=== PATIENT | female | born 1955 | race Caucasian/White ===

== ENCOUNTER 2017-03-04 16:03 | Outpatient (CLI) | payer SELFPAY ==
--- NOTE | 2017-03-04 18:45 | RAD ---
CHEST TWO VIEWS: 03/04/17 Comparison is made with a 11/30/12 study. The heart is normal in size. There are no infiltrates or ef fusions to suggest pneumonia. The right hilum is marginally more prominent than it was before, but th e patient is turned to the side slightly differently which is most likely responsible. If symptoms co ntinue, then followup could be in order. IMPRESSION: No acute thoracic findings. See above. POS: HOME
== END 2017-03-04 16:04 | disposition home or self-care (01) ==
LOC: BURRAD 16:03
PROVIDERS: ATTEND Physician Assistant
DX: R06.2 Wheezing (principal); J40 Bronchitis, not specified as acute or chronic; J10.1 Influenza due to other identified influenza virus with other respiratory manifestations
CPT/HCPCS: 71020

== ENCOUNTER 2021-10-31 23:34 | Emergency (ER) | payer MEDICARE ==
[2021-11-01] MEDS ORDERED: Meclizine HCl 25 MG TAB ONE (00:08)
[2021-11-01 00:23] LABS: INR-International Normal Ratio 0.9; Prothrombin Time 12.3 sec (12.0-14.7)
[2021-11-01 00:24] LABS: PTT 29.7 sec (22.9-36.1)
[2021-11-01 00:29] LABS: #Basophils 0.1 thou/uL (0.0-0.2); #Eosinphils 0.5 thou/uL (0.0-0.7); #Lymphocytes 2.2 thou/uL (1.20-3.40); #Monocytes 0.8 thou/uL (0.11-0.59); %Basophils 0.9 % (0.0-1.0); %Eosinophils 4.9 % (0.0-10.0); %Lymphocytes 20.5 % (21.0-51.0); %Monocytes 7.8 % (0.0-10.0); Hemoglobin 14.1 g/dL (12.0-16.0); Mean Corpuscular HGB CONC 33.9 g/dL (32.0-36.0); Mean Corpuscular Hemoglobin 31.4 pg (27.0-31.0); Mean Corpuscular Volume 92.6 fL (78.0-98.0); Mean Platelet Volume 6.2 fL (7.4-10.4); Platelet Count 316 thou/uL (130-400); RBC Distribution Width 12.9 % (11.5-14.5); White Blood Cell (WBC) Count 10.5 thou/uL (4.8-10.8)
[2021-11-01 00:43] LABS: ALT (SGPT) 27 U/L (8-55); AST (SGOT) 27 U/L (5-34); Albumin 4.2 g/dL (3.4-4.8); Alkaline Phosphatase 183 U/L (40-110); Anion Gap 15 mmol/L (10-20); BUN (Urea Nitrogen) 11 mg/dL (9.8-20.1); Bilirubin, Total 0.5 mg/dL (0.2-1.2); Calc. Creatinine Clearance 0 mL/min (70-130); Calcium 9.8 mg/dL (7.8-10.44); Carbon Dioxide 27 mmol/L (23-31); Chloride 105 mmol/L (98-107); Estimated GFR 94; Globulin 3.9 g/dL (2.4-3.5); Glucose 113 mg/dL (80-115); Potassium 3.7 mmol/L (3.5-5.1); Protein, Total 8.1 g/dL (5.8-8.1); Sodium 143 mmol/L (136-145)
[2021-11-01 01:10] LABS: Bilirubin Negative (Negative); Blood, Urine Negative (Negative); Clarity Clear (Clear); Glucose, Urine (Dipstick) Negative (Negative); Ketone, Urine Negative (Negative); Leukocyte Large (Negative); Nitrite Negative (Negative); Protein, Urine (Dipstick) Trace mg/dL (Neg-Trace); pH, Urine 7.5 (5.0-9.0)
[2021-11-01 01:11] LABS: Bacteria/HPF 2+ HPF (None Seen); RBC/HPF 0-3 HPF (0-3); Squamous Epithelial 0-3 HPF (0-3); WBC/HPF Greater Than 50 HPF (0-3)
== END 2021-11-01 01:33 | disposition home or self-care (01) ==
LOC: BURERS 23:34
DX: R42 Dizziness and giddiness (principal); N39.0 Urinary tract infection, site not specified; I10 Essential (primary) hypertension; E03.9 Hypothyroidism, unspecified
CPT/HCPCS: 70450; 71045; 80053; 81003; 81015; 84484; 85025; 85610; 85730; 93005

== ENCOUNTER 2022-02-28 01:02 | Inpatient (IN) | payer MEDICARE ==
[2022-02-28] MEDS ORDERED: Magnesium 2 GM/50 ML BAG (IN WATER) ONE (01:20)
[2022-02-28] MEDS ORDERED: methylPREDNISolone Sod Succ/PF 125 MG/2 ML VIAL ONE (01:20)
[2022-02-28] MEDS ORDERED: Albuterol Sulfate 2.5 mg/3 ml Neb ONE ×2 (01:20→01:40)
[2022-02-28 01:29] LABS: #Basophils 0.1 thou/uL (0.0-0.2); #Eosinphils 0.5 thou/uL (0.0-0.7); #Lymphocytes 2.3 thou/uL (1.20-3.40); #Monocytes 0.8 thou/uL (0.11-0.59); #Neutrophils 3.4 thou/uL (1.40-6.50); %Basophils 0.9 % (0.0-1.0); %Lymphocytes 32.1 % (21.0-51.0); %Monocytes 11.2 % (0.0-10.0); %Neutrophils 48.8 % (42.0-75.0); Hemoglobin 13.9 g/dL (12.0-16.0); Mean Corpuscular HGB CONC 34.1 g/dL (32.0-36.0); Mean Corpuscular Hemoglobin 30.7 pg (27.0-31.0); Mean Corpuscular Volume 90.1 fl (78.0-98.0); Mean Platelet Volume 6.9 fL (7.4-10.4); Platelet Count 243 10x3/uL (130-400); RBC Distribution Width 12.1 % (11.5-14.5); Red Blood Cell (RBC) Count 4.53 mill/uL (4.20-5.40)
[2022-02-28 01:41] LABS: Bicarbonate (HCO3v) 24.7 mmol/L (22.0-28.0); Calcium, Ionized 1.17 mmol/L (1.15-1.33); Chloride 108 mmol/L (98-107); Hemoglobin - Calc 14.3 g/dL (12.0-16.0); Potassium 3.8 mmol/L (3.5-5.1); Sodium 142 mmol/L (138-145); T. Carbon Dioxide 26.1 mmol/L (22.0-28.0); vO2 Saturation-calc 70.2 % (60.0-85.0)
[2022-02-28 01:51] LABS: ALT (SGPT) 85 U/L (8-55); AST (SGOT) 66 U/L (5-34); Albumin 3.8 g/dL (3.4-4.8); Alkaline Phosphatase 108 U/L (40-110); Anion Gap 12 mmol/L (10-20); BUN (Urea Nitrogen) 14 mg/dL (9.8-20.1); Bilirubin, Total 0.5 mg/dL (0.2-1.2); Calc. Creatinine Clearance 0 mL/min (70-130); Calcium 9.4 mg/dL (7.8-10.44); Carbon Dioxide 26 mmol/L (23-31); Chloride 107 mmol/L (98-107); Estimated GFR 96; Globulin 3.8 g/dL (2.4-3.5); Glucose 104 mg/dL (80-115); Potassium 3.8 mmol/L (3.5-5.1); Protein, Total 7.6 g/dL (5.8-8.1); Sodium 141 mmol/L (136-145)
[2022-02-28] MEDS ORDERED: Doxycycline 100 MG CAP ONE (02:16)
[2022-02-28 03:01] VITALS: BMI 27.4
[2022-02-28] MEDS ORDERED: Albuterol Sulfate 2.5 mg/3 ml Neb NEB PRN (03:04)
[2022-02-28 03:05] LABS: SARS-CoV-2 NAA Rapid Test Not Detected (NotDetected)
[2022-02-28] MEDS ORDERED: HYDROcodone/Acetaminophen 10/325 mg Tablet PO PRN ×2 (04:00)
[2022-02-28] MEDS ORDERED: Calcium Carbonate 500 MG ChewTAB PO PRN (04:00)
[2022-02-28] MEDS ORDERED: Acetaminophen 650 MG Suppository PR PRN (04:00)
[2022-02-28] MEDS ORDERED: Ondansetron ODT 4 MG TAB SL PRN (04:00)
[2022-02-28] MEDS ORDERED: Amlodipine 5 MG TAB PO SCH (04:00)
[2022-02-28] MEDS ORDERED: Levothyroxine Sodium 25 MCG TAB PO SCH (06:00)
[2022-02-28] MEDS ORDERED: methylPREDNISolone Sod Succ 40 MG VIAL IVP SCH (06:00)
[2022-02-28] MEDS ORDERED: Benzonatate 100 MG CAP PO SCH (09:00)
[2022-02-28] MEDS ORDERED: Doxycycline 100 MG CAP PO SCH (09:00)
[2022-02-28] MEDS ORDERED: Propranolol HCl 20 MG TAB PO SCH (09:00)
[2022-02-28] MEDS ORDERED: PARoxetine 20 MG TAB PO SCH (09:00)
[2022-02-28] MEDS: Enoxaparin Sodium 40 MG/0.4 ML SYRINGE SC SCH (09:12)
[2022-02-28] MEDS: Multivit, Therapeutic 1 TAB PO SCH (09:12)
[2022-02-28] MEDS: Senokot S 8.6-50 MG TAB PO PRN (09:19)
[2022-02-28] MEDS: methylPREDNISolone Sod Succ/PF 125 MG/2 ML VIAL IVP SCH ×2 (13:45→17:13)
[2022-02-28] MEDS: Benzonatate 100 MG CAP PO SCH ×2 (14:28→20:27)
[2022-02-28] MEDS: Propranolol HCl 20 MG TAB PO SCH ×2 (14:28→20:28)
[2022-02-28] MEDS: hydrOXYzine 25 MG TAB PO PRN (20:28)
[2022-02-28] MEDS: Acetaminophen 325 MG TAB PO PRN (20:28)
[2022-03-01] MEDS: methylPREDNISolone Sod Succ/PF 125 MG/2 ML VIAL IVP SCH ×5 (00:06→23:57)
[2022-03-01] MEDS: Levothyroxine Sodium 50 MCG TAB PO SCH (05:44)
[2022-03-01] MEDS: Propranolol HCl 20 MG TAB PO SCH ×3 (09:17→20:44)
[2022-03-01] MEDS: Enoxaparin Sodium 40 MG/0.4 ML SYRINGE SC SCH (09:17)
[2022-03-01] MEDS: Multivit, Therapeutic 1 TAB PO SCH (09:18)
[2022-03-01] MEDS: PARoxetine 20 MG TAB PO SCH (09:18)
[2022-03-01] MEDS: Benzonatate 100 MG CAP PO SCH ×3 (09:18→20:44)
[2022-03-01] MEDS: Amlodipine 5 MG TAB PO SCH (09:18)
[2022-03-01] MEDS: Mometasone/Formoterol 200/5 60 PUFF INH SCH ×2 (09:25→20:40)
[2022-03-01] MEDS: Senokot S 8.6-50 MG TAB PO PRN (12:31)
[2022-03-01] MEDS: Doxycycline 100 MG CAP PO SCH (20:43)
[2022-03-01] MEDS: hydrOXYzine 25 MG TAB PO PRN (20:44)
[2022-03-01] MEDS: Acetaminophen 325 MG TAB PO PRN (20:48)
[2022-03-02] MEDS: methylPREDNISolone Sod Succ/PF 125 MG/2 ML VIAL IVP SCH ×2 (05:28→12:07)
[2022-03-02] MEDS: Levothyroxine Sodium 50 MCG TAB PO SCH (05:28)
[2022-03-02] MEDS: Enoxaparin Sodium 40 MG/0.4 ML SYRINGE SC SCH (09:11)
[2022-03-02] MEDS: Propranolol HCl 20 MG TAB PO SCH (09:11)
[2022-03-02] MEDS: Multivit, Therapeutic 1 TAB PO SCH (09:11)
[2022-03-02] MEDS: Benzonatate 100 MG CAP PO SCH (09:12)
[2022-03-02] MEDS: Amlodipine 5 MG TAB PO SCH (09:13)
[2022-03-02] MEDS: PARoxetine 20 MG TAB PO SCH (09:13)
[2022-03-02] MEDS: Doxycycline 100 MG CAP PO SCH (09:13)
[2022-03-02] MEDS: Mometasone/Formoterol 200/5 60 PUFF INH SCH (09:15)
[2022-03-02 11:28] VITALS: TEMP 98.3
[2022-03-02 13:37] VITALS: BP 145/70
== END 2022-03-02 13:30 | disposition home or self-care (01) | DRG 189 ==
LOC: BURERS 01:02 → BURMED 02:19
PROVIDERS: ADMIT Family Medicine; ATTEND Family Medicine
DX: J96.01 Acute respiratory failure with hypoxia (principal); J44.1 Chronic obstructive pulmonary disease with (acute) exacerbation; Z20.822 Contact with and (suspected) exposure to COVID-19; B97.4 Respiratory syncytial virus as the cause of diseases classified elsewhere; I10 Essential (primary) hypertension; E03.9 Hypothyroidism, unspecified; F32.A Depression, unspecified; Z60.2 Problems related to living alone; J06.9 Acute upper respiratory infection, unspecified; K21.9 Gastro-esophageal reflux disease without esophagitis; Z90.49 Acquired absence of other specified parts of digestive tract; Z90.710 Acquired absence of both cervix and uterus; Z79.899 Other long term (current) drug therapy; Z79.890 Hormone replacement therapy; Z88.0 Allergy status to penicillin; Z88.8 Allergy status to other drugs, medicaments and biological substances; Z88.6 Allergy status to analgesic agent
CPT/HCPCS: 71045; 80053; 82330; 82803; 83880; 85025; 94640; 94760; 96365; 96375; J1650; J2920; J2930; J3475; J7611; J7620

== ENCOUNTER 2022-07-01 19:31 | Emergency (ER) | payer MEDICARE | END 2022-07-01 21:18 | disposition home or self-care (01) | LOC: BURERS 19:31 | DX: S83.92XA Sprain of unspecified site of left knee, initial encounter (principal); W19.XXXA Unspecified fall, initial encounter ==